=== PATIENT | male | born 1955 | race Caucasian/White ===

== ENCOUNTER 2016-10-05 11:08 | Inpatient (IN) ==
[2016-10-05 12:04] LABS: EOS% 5.9 % (0.0-10.0); HEMATOCRIT 21.8 % (42.0-52.0); HEMOGLOBIN 5.6 g/dL (14.0-18.0); LYMPH# 0.98 X1000 (1.2-3.4); LYMPH% 14.4 % (20.5-51.1); MANUAL DIFF NEEDED? NO; MCH 17.1 PG (27-31); MCHC 25.7 g/dL (33-37); MCV 66.5 FL (81-99); MONO# 0.74 X1000 (0.11-0.59); MONO% 10.9 % (1.7-9.3); MPV 9.1 FL (7.4-10.4); NEUT% 67.8 % (42.2-75.2); PLT 409 X1000 (130-400); RBC 3.28 XMIL (4.7-6.1)
[2016-10-05 12:08] LABS: URINE CULTURE NEEDED? NO; URINE MICRO REVIEW NEEDED? NO; URINE SOURCE CLEAN CATCH
[2016-10-05 12:14] LABS: BILIRUBIN URINE NEGATIVE (NEGATIVE); BLOOD URINE NEGATIVE (NEGATIVE); COLOR YELLOW; GLUCOSE URINE NEGATIVE (NEGATIVE); LEUKOCYTES URINE NEGATIVE (NEGATIVE); NITRITE URINE NEGATIVE (NEGATIVE); PH URINE 5.5; PROTEIN URINE TRACE mg/dL (NEGATIVE); SP GRAVITY URINE 1.021; TURBIDITY URINE CLEAR (CLEAR); UR EPITHELIAL CELLS <10 /HPF (<10); URINE BACTERIA NEGATIVE /HPF; URINE RBC <10 /HPF (<10); URINE WBC <10 /HPF (<10); UROBILINOGEN URINE 2 mg/dL (NORMAL)
[2016-10-05 12:19] LABS: AGAP 13; ALBUMIN 4.2 g/dL (3.5-5.0); ALKALINE PHOSPHATASE 60 U/L (32-122); BUN 16 mg/dL (8-22); CALCIUM 9.1 mg/dL (8.8-10.2); CHLORIDE 101 mmol/L (98-107); COSMO 276; GOT 16 U/L (10-34); GPT 8 U/L (10-44); POTASSIUM 4.1 mmol/L (3.5-5.1); SODIUM 138 mmol/L (136-145); TCO2 24 mmol/L (25-35); TOTAL BILIRUBIN 0.32 mg/dL (0.20-1.00); TOTAL PROTEIN 7.1 g/dL (6.3-8.3)
--- NOTE | 2016-10-05 12:22 | Diag Imaging Result Doc PS360 ---
EXAM: CHEST-2 VIEWS HISTORY: weakness TECHNIQUE: Two views of the chest COMMENT: There is an apparent hiatal hernia. The inspiration is suboptimal. There is no evidence of acute pulmonary disease. IMPRESSION: Hiatal hernia. Electronically signed by Alen Cobian 10/05/2016 12:19 PM
--- NOTE | 2016-10-05 12:23 | PROVIDER DOCUMENTATION ---
This chart was entered by Kenan Mora Scribe, acting as scribe for Alonzo Estrada Jr, MD. HPI-General Adult - General Chief Complaint: Weakness Stated Complaint: POSS LOW BLOOD Time Seen by Provider: 10/05/16 11:24 Source: patient Allergies/Adverse Reactions: Patient Allergies Allergy/AdvReac Type Severity Reaction Status Date / Time No Known Allergies Allergy Verified 10/05/16 11:33 Home Medications: Home Medication List Medication Instructions Recorded Confirmed Last Taken Type NK [No Home Medications] 10/05/16 10/05/16 Unknown History - History of Present Illness -Gen Adult Nature of Presenting Problems: Patient is a 61 yo M that presents to the ER with weakness( generalized) x 3 days. Possible low blood counts with history of same in past in which he had to get blood transfusions. Patient denies shortness of breath, dizziness, or rectal /oral bleeding. Location of Pain/Injury: reports: generalized Pain Radiation: reports: no radiation Quality of Pain: reports: other (weakness) Severity: reports: moderate Onset/Duration: reports: gradual, 3 days ago Timing: reports: still present, getting worse Context/Activities at Onset: reports: none Modifying Factors: improves with: nothing Associated Symptoms: reports: weakness. denies: chest pain, constipation, diarrhea, dizziness, EENT symptoms, genitourinary problems, nausea, shortness of breath, vomiting Similar Symptoms Previously?: No Recently seen or treated by another doctor?: No Review of Systems - Adult - REVIEW OF SYSTEMS - ADULT Constitutional: reports: fatique. denies: chills, fever Eyes: reports: no symptoms reported Ears, Nose, Mouth & Throat: reports: no symptoms reported Cardiovascular: denies: chest pain, orthopnea, palpitations, syncope Respiratory: denies: dyspnea on exertion, shortness of breath, wheezing Gastrointestinal: denies: abdominal pain, hematemesis, diarrhea, nausea, rectal bleeding, vomiting Genitourinary: reports: no symptoms reported Musculoskeletal: reports: muscle weakness. denies: muscle aches Integumentary: reports: no symptoms reported Neurological: denies: dizziness/vertigo, syncope Psychiatric: reports: no symptoms reported Endocrine: reports: no symptoms reported Hematologic/Lymphatic: reports: no symptoms reported Allergic/Immunologic: reports: no symptoms reported All Other Systems: Reviewed and Negative Past History - Adult - PAST MEDICAL HISTORY-ADULT Review of Records: reports: Old Records Reviewed, Nursing Assessment Review, Medications Reviewed Neurological: reports: other (CP) - PRIOR SURGERIES/PROCEDURES Surgical/Procedure History: reports: orthopedic (extremity) - IMMUNIZATION STATUS Childhood Immunizations: See Nurse Assessment Flu Vaccine: See Nurse Assessment - FAMILY HISTORY Family History: reviewed, not pertinent - SOCIAL HISTORY Smoking: cigarettes, less than 1 pack/day Alcohol Use Frequency: occasionally Living Situation: family Physical Exam-General - PHYSICAL EXAM-ADULT Initial Vital Signs Reviewed: Yes - CONSTITUTIONAL General Appearance: alert, no apparent distress - EYES Eyes: PERRL/EOMI, pale conjunctivae - HEAD, EARS, NOSE, MOUTH & THROAT HENMT: normocephalic/atraumatic, moist mucous membranes, normal ENT inspection - NECK Neck: full range of motion, normal inspection - RESPIRATORY Respiratory: lungs clear, normal breath sounds, no respiratory distress, no accessory muscle use - CARDIOVASCULAR Cardiovascular: regular rate, rhythm, no edema, no murmur - GASTROINTESTINAL (ABDOMEN) Abdominal Exam: normal bowel sounds, non tender, soft, no organomegaly, no pulsatile mass - MUSCULOSKELETAL Extremity: normal range of motion, pelvis stable, pedal edema (1 plus pitting) - SKIN Integumentary: pallor. negative: cyanosis - NEUROLOGIC Neurologic: media reporter II-XII nml as tested, no motor/sensory deficits - PSYCHIATRIC Psych/Mental Status: normal mood/affect, normal thought content, normal thought process, oriented x 3 Progress - PLAN OF CARE/RESULTS Progress/Plan/Lab Results: Vital Signs - 8 hr 10/05/16 11:18 Temperature 98.7 F Pulse Rate 90 Respiratory Rate 16 Blood Pressure 149/85 O2 Sat by Pulse Oximetry 100 Orders Category Date Time Status CHEST-2 VIEWS [RAD] Stat Exams 10/05/16 11:27 Ordered CBC WITH ELECTRONIC DIFF [HEME] Stat Lab 10/05/16 11:42 Received COMPREHENSIVE METABOLIC PANEL [CHEM] Stat Lab 10/05/16 11:42 Received URINALYSIS W/POSS RFLX CULT-1 [URINALYSIS] Stat Lab 10/05/16 11:26 Uncollected EKG [EKG] Stat Ther 10/05/16 11:28 Ordered Result Diagrams: 10/05/16 11:42 10/05/16 11:42 - XRAY 1 XRAY Study: Chest Impression: Abnormal XRAY Interpretation: hiatal hernia - CONSULTS/PCP/HOSPITALIST Notification #1 *Consult/PCP/Hospitalist*: Mr. Taylor Time Discussed: 12:20 (Dr. Brody is admitting MD) Consult Disposition: Admit Departure - Departure Date of Disposition Decision: 10/05/16 Time of Disposition Decision: 12:21 DIAGNOSIS: Microcytic anemia Disposition: ADMITTED INPATIENT 09 Certified Medical Emergency: Emergent Condition: Good - Critical Care Note This patient required my direct & personal management of CC.: No This chart was documented by the indicated scribe, (Kenan Mora, Scribe) and accurately reflects the services I performed and decisions made by me, Alonzo Estrada Jr, MD, as attested by the provider's signature.
[2016-10-05 13:34] LABS: IRON SATURATION 3 %; TIBC 490 ug/dL; TOTAL IRON 14 ug/dL (53-167); UNBOUND IRON 476 ug/dL (112-346)
[2016-10-05 13:39] LABS: FREE T4 1.14 ng/dL (0.93-1.70)
--- NOTE | 2016-10-05 13:58 | HISTORY AND PHYSICAL ---
PRIMARY CARE PHYSICIAN: None. CHIEF COMPLAINT: Weakness. HISTORY OF PRESENT ILLNESS: Mr. Santos is a 61-year-old male with a history of cerebral palsy and chronic anemia who presents with worsening weakness over the past 2-3 days. He reports his symptoms are similar to feeling sick with the flu, he has had an overall general malaise and difficulty finding energy to do day-to-day activities. He denies any fever, chills, or muscle aches. No nausea, vomiting or diarrhea. Denies any hematochezia, melena or hematemesis. Mr. Santos reports about a 3 year history of fairly severe and chronic anemia. He has had multiple workups including, apparently, upper and lower endoscopies along with capsule endoscopy without any significant source of bleeding. He was apparently on iron and he reports he was told that he did not need to take it any more at some point in the recent past. He came to the ER today, his hemoglobin and hematocrit was noted to be 5.6 and 21.8 respectively. He does have an MCV of 66.5, the rest of his laboratory data is largely unremarkable. Chest x-ray does not show anything acute. He is currently receiving 2 units of PRBC transfusion and will be admitted for further treatment and evaluation. PAST MEDICAL HISTORY: 1. Cerebral palsy with chronic lower extremity weakness. 2. Chronic anemia. 3. GERD. PAST SURGICAL HISTORY: He has had bilateral lower extremity surgery secondary to his CP and shoulder surgery. SOCIAL HISTORY: Patient smokes a half a pack a day. He drinks occasionally. Denies any drug use. He is and lives with his daughter and son-in-law. FAMILY HISTORY: Noncontributory. REVIEW OF SYSTEMS: Fourteen-point review of systems obtained and found to be negative with the exception of the HPI. ALLERGIES: No known drug allergies. HOME MEDICATIONS: None. PHYSICAL EXAMINATION: VITAL SIGNS: Blood pressure is 149/85, heart rate 90, respiratory rate 16, O2 saturation 100% on room air. Temperature is 98.7 degrees. GENERAL: This is a disheveled-appearing 61-year-old male, lying in hospital bed in no acute distress. NEUROLOGIC: The patient is awake, alert. He follows commands without significant focal deficits. HEENT: Head is atraumatic and normocephalic. His pupils are equal, round, and reactive to light. His oral mucosa is dry and pale. Conjunctiva is pale. NECK: Supple. Trachea is midline. No JVD. CHEST: Clear to auscultation bilaterally. Diminished at the bases. CV: Regular rate and rhythm. S1-S2 is noted. No murmurs, gallops, clicks, or rubs. GI: Soft, nondistended, nontender. Bowel sounds are positive. EXTREMITIES: Trace edema. Diminished pulses are 1+ bilaterally without edema or cyanosis. DIAGNOSTIC DATA: Chest x-ray negative for acute process. WBC 6.81, hemoglobin 5.6, hematocrit 21.8. MCV 66.5, platelet count 409,000, sodium 138, potassium 4.1, chloride 101, CO2 24, anion gap 13, BUN 16, creatinine 0.9, glucose is 86, calcium 9.1. LFTs within normal limits. Albumin 4.2. UA is negative. ASSESSMENT AND PLAN: 1. Profound microcytic anemia, symptomatic: Patient is currently receiving 2 units of PRBCs. We will order complete iron studies and consult GI for possible endoscopy, although the patient denies any melena, hematochezia or hematemesis. If his workup is negative he may need to see hematology although I do suspect the patient has chronic iron deficiency given his history. 2. Cerebral palsy. Chronic and stable. Will monitor. 3. Nicotine dependence: Patient has been advised to quit smoking. We will write a nicotine patch and continue daily cessation education. 4. Deep venous thrombosis prophylaxis with sequential compression devices and thromboembolic devices given his anemia. Further recommendations to follow. Dictated by MERARY García for Rosendo Fallon MD cc: MERARY García MD
[2016-10-05] MEDS ORDERED: NS 500 ML ONE (15:39)
[2016-10-05] MEDS: NICODERM PATCH TD SCH (18:32)
[2016-10-05] MEDS: ZOFRAN IV PRN (18:42)
[2016-10-06 07:21] LABS: HEMATOCRIT 26.7 % (42.0-52.0); HEMOGLOBIN 7.7 g/dL (14.0-18.0); MCHC 28.8 g/dL (33-37); MPV 9.3 FL (7.4-10.4); RBC 3.66 XMIL (4.7-6.1)
[2016-10-06 07:43] LABS: AGAP 9; BUN 13 mg/dL (8-22); CALCIUM 8.8 mg/dL (8.8-10.2); CHLORIDE 102 mmol/L (98-107); COSMO 275; POTASSIUM 4.5 mmol/L (3.5-5.1); SODIUM 138 mmol/L (136-145); TCO2 27 mmol/L (25-35)
[2016-10-06] MEDS: NICODERM PATCH TD SCH (09:55)
[2016-10-06] MEDS ORDERED: GOLYTELY PO ONE (14:00)
[2016-10-06 14:02] LABS: INR 1.03; PROTIME 10.8 Seconds (9.2-11.7)
--- NOTE | 2016-10-06 15:20 | PROGRESS NOTE ---
DATE: 10/06/2016 SUBJECTIVE: This patient states that he is feeling better. No acute events overnight. He is status post one PRBC. OBJECTIVE: Vital Signs: Temperature 97.8 degrees, pulse 65, respiratory rate 18, blood pressure 142/81, oxygen saturation 100% on room air. HEENT: Head normocephalic. No trauma. PERRLA. Neck: Supple. No JVD. No masses. Central trachea. Skin: Pale. Chest: Clear to auscultation. No wheezing. No rales. Abdomen: Soft, nontender, nondistended. No hepatosplenomegaly. Extremities: No edema. No clubbing. No cyanosis. Neurological: The patient is alert and oriented x3. No focal deficits. LABORATORY: WBC 6.3, hemoglobin 7.7, hematocrit 26.7, platelets 363,000. Sodium 138, potassium 4.5, chloride 102, bicarbonate 27. BUN 13, creatinine 0.8, glucose 88, calcium 8.8. ASSESSMENT AND PLAN: 1. Microcytic anemia, symptomatic, status post 1 packed red blood cell. Gastroenterology Department will scope this patient tomorrow. He will be NPO after midnight with bowel prep. 2. Cerebral palsy, chronic and stable. Will monitor. 3. Nicotine dependence. This patient has been highly advised to quit smoking. We will continue with daily cessation education. Continue with nicotine patch. 4. Deep vein thrombosis prophylaxis with SCDs. cc: Rosendo Fallon MD
--- NOTE | 2016-10-06 16:10 | CONSULTATION ---
DATE OF CONSULTATION: 10/06/2016 REASON FOR REFERRAL: Anemia. HISTORY OF PRESENT ILLNESS: This is a 61-year-old, white male with a history of cerebral palsy and chronic anemia. He states he has been treated and followed for anemia for the last 3 years. He was living in [place] when he had other workup done including an EGD, colonoscopy and capsule endoscopy. The patient reports over the last several days, he has had increased weakness and fatigue. He had denied dizziness or syncope. He just felt tired and was unable to perform his day-to-day activities. No reported nausea or vomiting. No reported constipation or diarrhea. No reported abdominal pain. No reported bright red blood in the stool. He did report some darker stools than normal, but states they were not black or tarry. On admission he was found to be severely anemic. His hemoglobin was 5.6, hematocrit 21.8. He has received 2 units of packed red blood cells. PAST MEDICAL HISTORY: For cerebral palsy and chronic anemia. GERD. PAST SURGICAL HISTORY: Lower extremity surgery secondary to cerebral palsy and shoulder surgery. ALLERGIES: No known drug allergies. HOME MEDICATIONS: He takes a Prilosec over the counter as needed. No other reported medications. He denies taking anti-inflammatory medications like ibuprofen, Motrin or Goody powders. SOCIAL HISTORY: Positive for tobacco use 1/2 pack of cigarettes daily. Reports occasional alcohol use. He is a . He lives with his daughter. REVIEW OF SYSTEMS: Per HPI. PHYSICAL EXAMINATION: Vital Signs: Temperature 97.8, pulse 65, respirations 18, blood pressure 142/81. Generally: Patient is awake, alert, no acute distress. HEENT: Normocephalic, atraumatic. Pupils equal, round, reactive to light. Sclerae are nonicteric. Respiratory: Lung sounds essentially clear. Abdomen: Soft, nontender. Positive bowel sounds. Extremities: Mild edema noted. Otherwise pulses present bilaterally. DIAGNOSTIC RESULTS: Laboratory: Hematology: White count 6.53, hemoglobin 7.7, hematocrit 26.7, MCV 73.0. This is after 2 units of packed red blood cells. Coagulation: ProTime 10.8, INR 1.03. Chemistry: Sodium 138, potassium 4.5, chloride 102, CO2 of 27, BUN 13, creatinine is 0.8, glucose 88. Iron 14, TIBC 490. Percent saturation 3 ferritin 3. ASSESSMENT: 1. Anemia. 2. History of chronic anemia with other workup including upper and lower endoscopies and capsule endoscopy when he lived in [place]. 3. Cerebral palsy. PLAN: Continue supportive care. Monitor hemoglobin, hematocrit. Monitor for active bleeding. Will proceed with an EGD and colonoscopy when possible. Further plans to be made according to findings. I have discussed the risks and benefits of the procedure with the patient. He voices understanding. Thank you for this consultation. I have discussed this case with Dr. Pat. Dictated by MERARY Blanco for Alejandro Pat MD cc: MERARY Gibbs MD
[2016-10-06] MEDS ORDERED: NS 500 ML ONE (16:27)
[2016-10-07 07:17] LABS: BASO% 0.8 % (0.0-0.8); EOS# 0.62 X1000 (0.0-0.7); EOS% 8.7 % (0.0-10.0); HEMATOCRIT 33.3 % (42.0-52.0); HEMOGLOBIN 10.1 g/dL (14.0-18.0); LYMPH# 1.18 X1000 (1.2-3.4); LYMPH% 16.6 % (20.5-51.1); MANUAL DIFF NEEDED? YES; MCH 22.5 PG (27-31); MCHC 30.3 g/dL (33-37); MCV 74.2 FL (81-99); MONO# 0.89 X1000 (0.11-0.59); MONO% 12.6 % (1.7-9.3); MPV 9.2 FL (7.4-10.4); NEUT% 61.3 % (42.2-75.2); PLT 360 X1000 (130-400); RBC 4.49 XMIL (4.7-6.1)
[2016-10-07 07:25] LABS: AGAP 10; BUN 10 mg/dL (8-22); CALCIUM 8.7 mg/dL (8.8-10.2); CHLORIDE 103 mmol/L (98-107); COSMO 276; POTASSIUM 4.2 mmol/L (3.5-5.1); SODIUM 139 mmol/L (136-145); TCO2 26 mmol/L (25-35)
[2016-10-07 08:07] LABS: EOS 4 % (1-10); LYMPHS 22 % (21-51); MONO 4 % (1-9)
[2016-10-07] MEDS ORDERED: DIPRIVAN 1% ONE ×2 (08:17→08:34)
[2016-10-07] MEDS ORDERED: XYLOCAINE-MPF 2% ONE (08:17)
--- NOTE | 2016-10-07 13:08 | Diag Imaging Result Doc PS360 ---
EXAM: GI SERIES PARTIAL INDICATION: Giant Hiatal Hernia TECHNIQUE: Oral barium contrast was administered. Limited fluoroscopic images of the distal esophagus and stomach were obtained in the usual fashion. COMPARISON: None. FINDINGS: A majority of the stomach is herniated above the diaphragm to the left of the esophagus. The gastroesophageal junction is at or near the diaphragmatic hiatus. This suggests a possible paraesophageal hernia rather than a typical hiatal hernia. No discrete filling defects are identified on these limited images. IMPRESSION: Majority of the stomach herniated above the diaphragm in a configuration suggesting a possible paraesophageal hernia as described. Electronically signed by Sherwin Sheppard 10/07/2016 1:05 PM
--- NOTE | 2016-10-07 15:52 | PROGRESS NOTE ---
DATE: 10/07/2016 SUBJECTIVE: This patient states that he is feeling better. He had an upper endoscopy and colonoscopy today, he is not complaining of any specific pain at this moment. Hemoglobin and hematocrit are stable. I will start this patient on a diet. OBJECTIVE: Vital Signs: Temperature 97.7 degrees, pulse 60, respiratory rate 20, blood pressure 136/77, oxygen saturation 96% on room air. HEENT: Head normocephalic. No trauma. PERRLA. Neck: Supple. No JVD. No masses. Central trachea. Skin: Pale. Chest: Clear to auscultation. No wheezing. No rales. Abdomen: Soft, nontender, nondistended. No hepatosplenomegaly. Extremities: No edema. No clubbing. No cyanosis. Neurological: The patient is alert and oriented x3. No focal deficits. LABORATORY: WBC 7, hemoglobin 10.1, hematocrit 33.3, platelets 360,000. Sodium 139, potassium 4.2, chloride 103, bicarbonate 26, BUN 18, creatinine 0.8, glucose 83, calcium 8.7, magnesium 2.1. ASSESSMENT AND PLAN: 1. Microcytic anemia, symptomatic, status post packed red blood cells. Gastroenterology Department for scoped this patient today. Pending reports and recommendation. 2. Cerebral palsy, chronic and stable. Will monitor. 3. Nicotine dependence. This patient has been highly advised to quit smoking. We will continue with daily cessation education, continue with nicotine patch. 4. Deep vein thrombosis prophylaxis with sequential compression devices. cc: Rosendo Fallon MD
[2016-10-07] MEDS: NICODERM PATCH TD SCH (17:01)
--- NOTE | 2016-10-07 18:01 | OPERATIVE NOTE ---
PROCEDURE DATE: 10/07/2016 PROCEDURE: Esophagogastroduodenoscopy and flexible sigmoidoscopy. PREOPERATIVE DIAGNOSIS: Profound anemia. POSTOPERATIVE DIAGNOSES: 1. Large hiatal hernia with Randy's lesions. 2. Poor prep. 3. Otherwise normal flexible sigmoidoscopy. HISTORY: This is a 61-year-old gentleman admitted to the hospital with profound weakness and was found to have a severe anemia. EGD and colonoscopy was scheduled today to identify the etiology and rule out GI pathology resulting in his anemia requiring transfusion. DESCRIPTION OF PROCEDURE: Informed consent was obtained from the patient. Procedure, risks, benefits, alternatives were explained in layman's terms. He understood. All the pertinent questions were answered. Patient was brought to the endoscopy unit and was premedicated as per Anesthesia. After adequate sedation, while he was lying in left lateral position, the gastroscope was introduced into the posterior pharynx and advanced under direct vision into the esophagus. Esophagus showed evidence of a large hiatal hernia. It was a mixed hiatal hernia and rather large. GE junction was noted at about 30 cm from the incisor, and almost like 10 cm long hiatal hernia was noted. The stomach was almost J-shaped, it was very difficult to advance the scope through the hernial sac into the distal stomach, but with some maneuvering I was able to advance it to the antrum area and then through the normal pylorus into the duodenal bulb and the 2nd part of duodenum. Both duodenal bulb and 2nd portion of duodenum appeared to be normal. The distal stomach appeared to be normal. No erosion, ulceration or mass was seen. However proximal stomach, most of the proximal stomach that is almost two-thirds of the stomach was in the hernial sac and there appeared to be an axial rotation of the stomach as well. 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 I did not see any distinct ulcer, but there were some linear erosions seen at the diaphragmatic hiatus suggestive of Randy's lesions. The scope was withdrawn. Patient was then repositioned for colonoscopy. Digital rectal exam was performed, which revealed some brown stool in the rectum. I introduced the scope and I was able to go up to only 25-30 cm from the anal verge. Further advance was not possible because of poor prep. I tried to was employ vigorous irrigation suctioning for better visualization but I was unable to because of again poor prep. The scope was withdrawn. Patient tolerated the procedure. No complications noted. Patient was then transferred to the recovery area in a stable condition. IMPRESSION: Profound anemia most likely from bleeding from the Randy's lesions in his stomach from the hiatal hernia. I did not see any peptic ulcer disease or pathology in the sigmoid colon that would explain his anemia. I recommend to do an upper GI to identify the size and the anatomy of the hiatal hernia and that can be corrected surgically to help him avoid these episodes of anemia requiring transfusions. He may need a full colonoscopy later down the road. I have explained the findings and plan with the patient. He understands. All the pertinent questions answered. cc: Alejandro Pat MD
[2016-10-08 07:35] LABS: HEMOGLOBIN 10.5 g/dL (14.0-18.0); MCH 22.6 PG (27-31); MCV 75.3 FL (81-99); MPV 9.5 FL (7.4-10.4); RBC 4.65 XMIL (4.7-6.1)
[2016-10-08 07:46] LABS: AGAP 10; BUN 8 mg/dL (8-22); CALCIUM 9.1 mg/dL (8.8-10.2); CHLORIDE 102 mmol/L (98-107); COSMO 275; POTASSIUM 4.2 mmol/L (3.5-5.1); SODIUM 139 mmol/L (136-145); TCO2 27 mmol/L (25-35)
--- NOTE | 2016-10-08 12:29 | PROGRESS NOTE ---
DATE: 10/08/2016 SUBJECTIVE: The patient states he is feeling a little better. EGD and flexible sigmoidoscopy were done yesterday on 10/07/2016. Findings showed a large hiatal hernia with Randy's lesions. Poor prep for colonoscopy but, otherwise, normal flexible sigmoidoscopy. He had an upper GI series that showed a giant hiatal hernia. The majority of the stomach is herniated above the diaphragm to the left of the esophagus. The gastroesophageal junction is at or near the diaphragmatic hiatus suggesting possible paraesophageal hernia rather than a typical hiatal hernia. No discrete filling defects are identified. VITAL SIGNS: Temperature 98.3 degrees, pulse 62, respirations 16, blood pressure 143/73. LABORATORY: Hematology: White count 6.27, hemoglobin 10.5, hematocrit 35.0. MCV 75.3, platelet 378,000. Chemistry: Sodium 139, potassium 4.2, chloride 102, CO2 of 27, BUN 8 , creatinine 0.8, glucose 83. ASSESSMENT AND PLAN: 1. Anemia. 2. Large hiatal hernia versus paraesophageal hernia. 3. Normal flexible sigmoidoscopy but poor prep. GI series showed a giant hiatal hernia suggesting possible paraesophageal hernia. Bleeding most likely from Randy's lesion secondary to hernia. Consultation has been requested for Dr. Esquivel for evaluation. We will continue to follow. Monitor H/H and monitor for active bleeding. Further plans will be made as needed. Dictated by MERARY Blanco for Alejandro Pat MD cc: MERARY Gibbs MD [facility]
--- NOTE | 2016-10-08 14:47 | PROGRESS NOTE ---
DATE: 10/08/2016 SUBJECTIVE: This patient states that he is feeling better. He is tolerating p.o. Family members are at the bedside. He had an endoscopy yesterday that showed a Randy lesion secondary to gastric herniation. Gastroenterology department suggested to consult surgery for evaluation. OBJECTIVE: Vital Signs: Temperature 98.6 degrees, pulse 78, respiratory rate 21, blood pressure 140/85, oxygen saturation 97% on room air. HEENT: Head normocephalic. No trauma. PERRLA. Neck: Supple. No JVD. No masses. Central trachea. Chest: Clear to auscultation. No wheezing. No rales. Abdomen: Soft, nontender, nondistended. No hepatosplenomegaly. Extremities: No clubbing. No clubbing. No cyanosis. Neurological: The patient is alert and oriented x3. No focal deficits. LABORATORY: WBC 6.2, hemoglobin 10.5, hematocrit 35, platelets 378,000. Sodium 139, potassium 4.2, chloride 102, bicarbonate 27, BUN 8, creatinine 0.8, glucose 83, calcium 9.1, magnesium 2. ASSESSMENT AND PLAN: 1. Randy lesion. This patient was admitted secondary to microcytic anemia. He received PRBCs. Gastroenterology department did scope this patient and they found a gastric herniation and Randy lesion. Likely the bleeding is coming from this part of the stomach. Surgery department has been consulted for evaluation. 2. Microcytic anemia. As above. 3. Cerebral palsy. This is chronic and stable. Will monitor. 4. Nicotine dependence. This patient has been highly advised to quit smoking. We will continue with daily cessation education. Continue with nicotine patch. 5. Deep vein thrombosis prophylaxis with SCDs. cc: Rosendo Fallon MD
[2016-10-08] MEDS: NICODERM PATCH TD SCH (16:00)
--- NOTE | 2016-10-08 19:08 | CONSULTATION ---
DATE OF CONSULTATION: 10/08/2016 CHIEF COMPLAINT: Blood-loss anemia, large hiatal hernia and Randy lesions. HISTORY: This is a 61-year-old gentleman with cerebral palsy who has required multiple transfusions in the past due to bleeding of unknown etiology. He was admitted recently again with anemia and underwent endoscopy by Dr. Pat who found a very large hiatal hernia and Randy lesions which could account for his chronic blood loss. He does have gastroesophageal reflux disease. He does take over-the- counter PPIs. He does have significant symptoms without PPIs. PAST SURGICAL HISTORY: Shoulder surgery and some lower extremity surgery for his cerebral palsy. SOCIAL HISTORY: He is and moves from family member to family member for care. He does smoke cigarettes daily. He does drink occasionally. FAMILY HISTORY: Not known. REVIEW OF SYSTEMS: As noted above. HOME MEDICATIONS: [id number] Prilosec. ALLERGIES: He has no known drug allergies. PHYSICAL EXAM: Vital Signs: Afebrile. Heart rate 78, respiratory rate 20, blood pressure 140/85. General: He is awake, alert and communicates appropriately. HEENT: No cervical adenopathy. Lungs: Bilateral breath sounds. He does have rhonchi bilaterally. Heart: Regular rate and rhythm. Abdomen: Soft and nontender. No scars are noted. Extremities: Femoral pulses are present. Pedal pulses are present. LABORATORY DATA: Reveals hemoglobin up to 10.5, hematocrit 35, white count 6700. BUN 8, creatinine 0.8. ASSESSMENT: Large hiatal hernia with Randy lesions. PLAN: Get a CAT scan to further evaluate the anatomy. Thank you for the opportunity to see him. cc: Olivier Esquivel MD
[2016-10-09] MEDS: PRILOSEC PO SCH (06:46)
[2016-10-09 06:48] LABS: BASO% 1.1 % (0.0-0.8); EOS% 10.8 % (0.0-10.0); HEMATOCRIT 36.5 % (42.0-52.0); IMM GRAN# 0.03 X1000 (0.0-0.04); IMM GRAN% 0.4 % (0.0-0.5); LYMPH# 1.37 X1000 (1.2-3.4); LYMPH% 18.4 % (20.5-51.1); MANUAL DIFF NEEDED? NO; MCH 22.6 PG (27-31); MCHC 30.1 g/dL (33-37); MCV 75.1 FL (81-99); MONO# 1.03 X1000 (0.11-0.59); MONO% 13.9 % (1.7-9.3); MPV 9.1 FL (7.4-10.4); NEUT% 55.4 % (42.2-75.2); PLT 405 X1000 (130-400); RBC 4.86 XMIL (4.7-6.1)
[2016-10-09 07:14] LABS: AGAP 9; BUN 15 mg/dL (8-22); CALCIUM 9.2 mg/dL (8.8-10.2); CHLORIDE 100 mmol/L (98-107); COSMO 276; MAGNESIUM 2.1 mg/dL (1.5-2.7); POTASSIUM 4.3 mmol/L (3.5-5.1); SODIUM 138 mmol/L (136-145); TCO2 29 mmol/L (25-35)
--- NOTE | 2016-10-09 08:30 | Diag Imaging Result Doc PS360 ---
EXAM: ABDOMEN W/O CONTRAST HISTORY: Large hiatal hernia TECHNIQUE: CT of the abdomen with oral but no intravenous contrast COMMENT: There are no previous studies. There is a very large hiatal hernia which has been described on fluoroscopy previously. There is minimal atelectasis or fibrosis in the right costophrenic sulcus posteriorly. The gastroesophageal junction appears to be below the diaphragm. The pylorus is in the normal location. There are no gallstones. There are stones in both kidneys most notably on the right side inferiorly where there are several stones exceeding 8 mm in size. There is no evidence of hydronephrosis. The spleen and adrenal glands are not enlarged. There are no gross pancreatic abnormalities. The liver is grossly normal in appearance. There is no evidence of small bowel dilatation. IMPRESSION: 1. Paraesophageal hiatal hernia. 2. Bilateral nephrolithiasis without evidence of hydronephrosis. Electronically signed by Alen Cobian 10/09/2016 8:27 AM
[2016-10-09] MEDS: NICODERM PATCH TD SCH (10:19)
--- NOTE | 2016-10-09 13:01 | PROGRESS NOTE ---
DATE: 10/09/2016 SUBJECTIVE: This patient states that he is feeling better. He does not have any specific complaints today. No acute events overnight. OBJECTIVE: Vital Signs: Temperature 98 degrees, pulse 63, respiratory rate 16, blood pressure 113/87, O2 saturation 97% on room air. HEENT: Head normocephalic. No trauma. PERRLA. Neck: Supple. No JVD. No masses. Central trachea. Chest: Clear to auscultation. No wheezing. No rales. Abdomen: Soft, nontender, nondistended. No hepatosplenomegaly. Extremities: No edema. No clubbing. No cyanosis. Neurological: The patient is alert and oriented x3. No focal deficits. LABORATORY: WBC 7.4, hemoglobin 11, hematocrit 36.5, platelets 405,000. Sodium 138, potassium 4.3, chloride 100, bicarbonate 29, BUN 15, creatinine 0.9, glucose 96, calcium 9.2, magnesium 2.1. ASSESSMENT AND PLAN: 1. Randy lesion. This patient was admitted secondary to microcytic anemia. He received packed red blood cells. The Gastroenterology Department did scope this patient and they found a gastric herniation and Randy lesion. Likely, the bleeding is coming from this part of the stomach. The Surgery Department has been consulted to see if they can repair the paraesophageal herniation. 2. Microcytic anemia, as above. 3. Cerebral palsy. It looks like he has very mild dysfunction. This patient is completely alert and oriented x3, and he follows commands. 4. Nicotine dependence. This patient has been highly advised to quit smoking. We will continue with daily cessation education. Continue with nicotine patch. 5. Deep vein thrombosis prophylaxis with SCDs. cc: Rosendo Fallon MD
--- NOTE | 2016-10-09 13:11 | PROGRESS NOTE ---
DATE: 10/09/2016 SUBJECTIVE: Patient denies any significant complaints this morning. He has been seen by Dr. Esquivel. Dr. Esquivel has ordered a CT scan and will decide about further plans regarding possible surgery for his hernia. OBJECTIVE: Vital Signs: Temperature 98.0 degrees, pulse 63, respirations 16, blood pressure 113/87. LABORATORY: Hematology: White count 7.43, hemoglobin 11.0, hematocrit 36.5, MCV 75.1, platelets 405,000. Chemistry: Sodium 138, potassium 4.3, chloride 100, CO2 of 29. BUN 15, creatinine 0.9, glucose 96. ASSESSMENT AND PLAN: 1. Anemia. 2. Esophagogastroduodenoscopy findings showing large hiatal hernia and Randy's lesions. 3. Hiatal hernia versus paraesophageal hernia. 4. Cerebral palsy. PLAN: Continue supportive care. Dr. Esquivel has seen the patient and has ordered a CT scan. Further plans will be made by him regarding possibility of surgery for repair of hernia. We will continue to follow. Further plans will be made as needed. Dictated by MERARY Blanco for Alejandro Pat MD cc: MERARY Gibbs MD
[2016-10-10 06:34] LABS: BASO% 0.8 % (0.0-0.8); EOS# 0.97 X1000 (0.0-0.7); EOS% 12.6 % (0.0-10.0); HEMATOCRIT 37.6 % (42.0-52.0); HEMOGLOBIN 11.4 g/dL (14.0-18.0); IMM GRAN# 0.03 X1000 (0.0-0.04); IMM GRAN% 0.4 % (0.0-0.5); LYMPH# 1.37 X1000 (1.2-3.4); LYMPH% 17.9 % (20.5-51.1); MANUAL DIFF NEEDED? NO; MCH 22.9 PG (27-31); MCHC 30.3 g/dL (33-37); MCV 75.7 FL (81-99); MONO% 11.7 % (1.7-9.3); MPV 9.1 FL (7.4-10.4); NEUT% 56.6 % (42.2-75.2); PLT 408 X1000 (130-400); RBC 4.97 XMIL (4.7-6.1)
[2016-10-10 07:02] LABS: AGAP 5; BUN 16 mg/dL (8-22); CALCIUM 9.3 mg/dL (8.8-10.2); CHLORIDE 101 mmol/L (98-107); COSMO 273; POTASSIUM 4.4 mmol/L (3.5-5.1); SODIUM 136 mmol/L (136-145); TCO2 30 mmol/L (25-35)
[2016-10-10] MEDS: NICODERM PATCH TD SCH (10:41)
[2016-10-10] MEDS: PRILOSEC PO SCH (10:45)
--- NOTE | 2016-10-10 14:06 | PROGRESS NOTE ---
DATE: 10/10/2016 SUBJECTIVE: This patient states that he is feeling better. Surgery Department evaluated this patient and they will schedule this patient for a possible paraesophageal hernia repair. Will continue to monitor. OBJECTIVE: Vital Signs: Temperature 97.6 degrees, pulse 69, respiratory rate 19, blood pressure 114/80, O2 saturation 97% on room air. HEENT: Head normocephalic. No trauma. PERRLA. Neck: Supple. No JVD. No masses. Central trachea. Chest: Clear to auscultation. No wheezing. No rales. Abdomen: Soft, nontender, nondistended. No hepatosplenomegaly. Extremities: No edema. No clubbing. No cyanosis. Neurological: The patient is alert and oriented x3. No focal deficits. LABORATORY: WBC 7.6, hemoglobin 11.4, hematocrit 37.6, platelets 408,000. Sodium 136, potassium 4.4, chloride 101, bicarbonate 30, BUN 16, creatinine 0.9, glucose 94, calcium 9.3. ASSESSMENT AND PLAN: 1. Randy lesion. This patient was admitted secondary to microcytic anemia. He received packed red blood cells. Gastroenterology did scope this patient and they found a gastric herniation and Randy lesion, likely the bleeding was coming from this part of the stomach. Surgery department evaluated this patient and they will do a paraesophageal hernia repair. They will schedule this patient for surgery. 2. Paraesophageal hernia. As above. 3. Microcytic anemia. As above. 4. Cerebral palsy. He looks like he has very mild dysfunction. This patient is completely alert and oriented x3 and he follows commands. 5. Nicotine dependence. This patient has been highly advised to quit smoking. We will continue with daily cessation education and nicotine patch. 6. Deep vein thrombosis prophylaxis with SCDs. cc: Rosendo Fallon MD
--- NOTE | 2016-10-10 15:50 | PROGRESS NOTE ---
DATE: 10/10/2016 SUBJECTIVE: Patient is resting in his chair. Has just finished his lunch and tolerated his diet well. Denies any GI symptoms. OBJECTIVE: Vital Signs: Temperature 97.6 degrees, pulse 69 per minute, breathing at 19, blood pressure 114/80. Physical exam otherwise unchanged. LABORATORY: Hemoglobin today 11.4, hematocrit 37.6 with an MCV of 75.7. IMPRESSION AND PLAN: Microcytic anemia. Improved after transfusion. His hemoglobin on admission was 5.6 and now is stabilizes at 11.4. Most likely the cause for his anemia is Randy lesion from his rather large paraesophageal hiatal hernia. The patient is scheduled to have surgery for correction of his hernia and fundoplication. Nothing much to add but I would try to get his endoscopy as well as capsule endoscopy reports from [place], [place] where he had an extensive workup done earlier. I will be available if needed. cc: Alejandro Pat MD
[2016-10-10] MEDS: TYLENOL PO PRN (20:14)
[2016-10-11] MEDS: PRILOSEC PO SCH (06:04)
[2016-10-11 07:07] LABS: BASO% 1.1 % (0.0-0.8); EOS# 1.11 X1000 (0.0-0.7); EOS% 12.6 % (0.0-10.0); HEMATOCRIT 37.2 % (42.0-52.0); HEMOGLOBIN 11.2 g/dL (14.0-18.0); IMM GRAN# 0.02 X1000 (0.0-0.04); IMM GRAN% 0.2 % (0.0-0.5); LYMPH# 1.21 X1000 (1.2-3.4); LYMPH% 13.8 % (20.5-51.1); MANUAL DIFF NEEDED? YES; MCHC 30.1 g/dL (33-37); MCV 76.4 FL (81-99); MONO# 0.99 X1000 (0.11-0.59); MONO% 11.3 % (1.7-9.3); MPV 9.5 FL (7.4-10.4); PLT 403 X1000 (130-400); RBC 4.87 XMIL (4.7-6.1)
[2016-10-11 07:08] LABS: AGAP 8; BUN 18 mg/dL (8-22); CHLORIDE 100 mmol/L (98-107); COSMO 276; POTASSIUM 4.6 mmol/L (3.5-5.1); SODIUM 137 mmol/L (136-145); TCO2 29 mmol/L (25-35)
[2016-10-11 07:43] LABS: EOS 9 % (1-10); LYMPHS 17 % (21-51); MONO 7 % (1-9)
[2016-10-11] MEDS: NICODERM PATCH TD SCH (09:04)
--- NOTE | 2016-10-11 15:23 | PROGRESS NOTE ---
DATE: 10/11/2016 SUBJECTIVE: This patient states that he is feeling better. He is complaining of mild abdominal pain, surgery department evaluated this patient and they will schedule this patient for possible paraesophageal hernia repair. Will continue to monitor. OBJECTIVE: Vital Signs: Temperature 98 degrees, pulse 63, respiratory rate 16, blood pressure 129/78, O2 saturation 98 on room air. HEENT: Head normocephalic. No trauma. PERRLA. Neck: Supple. No JVD. No masses. Central trachea. Chest: Clear to auscultation. No wheezing. No rales. Abdomen: Soft, nontender, nondistended. No hepatosplenomegaly. Extremities: No edema. No clubbing. No cyanosis. Neurological: The patient is alert and oriented x3. No focal deficits. LABORATORY: WBC 8.7, hemoglobin 11.2, hematocrit 37.2, platelets 403,000. Sodium 137, potassium 4.6, chloride 100, bicarbonate 29, BUN 18, creatinine 1.0, glucose 101, calcium 9. ASSESSMENT AND PLAN: 1. Randy lesion. This patient was admitted secondary to microcytic anemia. He received packet of red blood cells. Gastroenterology scoped this patient and they found a gastric herniation and Randy lesion. Likely the bleeding was coming from this part of the stomach. Surgery department evaluated this patient and they will do a paraesophageal hernia repair. They will schedule this patient for surgery. 2. Paraesophageal hernia. As above. 3. Microcytic anemia. As above. 4. Cerebral palsy. He looks like he has very mild dysfunction. This patient is completely alert and oriented x3. He follows commands and he is able to make decisions. 5. Nicotine dependence. This patient has been highly advised to quit smoking. We will continue with daily cessation education and nicotine patch. 6. Deep vein thrombosis prophylaxis with SCDs. cc: Rosendo Fallon MD
[2016-10-12] MEDS: PRILOSEC PO SCH (06:46)
[2016-10-12 06:58] LABS: BASO% 0.9 % (0.0-0.8); EOS# 1.02 X1000 (0.0-0.7); EOS% 11.8 % (0.0-10.0); HEMATOCRIT 36.6 % (42.0-52.0); HEMOGLOBIN 10.9 g/dL (14.0-18.0); IMM GRAN# 0.02 X1000 (0.0-0.04); IMM GRAN% 0.2 % (0.0-0.5); LYMPH# 1.31 X1000 (1.2-3.4); LYMPH% 15.2 % (20.5-51.1); MCHC 29.8 g/dL (33-37); MCV 77.2 FL (81-99); MONO# 0.95 X1000 (0.11-0.59); MPV 9.6 FL (7.4-10.4); NEUT% 60.9 % (42.2-75.2); PLT 370 X1000 (130-400); RBC 4.74 XMIL (4.7-6.1)
[2016-10-12 07:10] LABS: MANUAL DIFF NEEDED? NO
[2016-10-12 07:15] LABS: AGAP 7; BUN 19 mg/dL (8-22); CALCIUM 9.1 mg/dL (8.8-10.2); CHLORIDE 102 mmol/L (98-107); COSMO 281; POTASSIUM 4.7 mmol/L (3.5-5.1); SODIUM 140 mmol/L (136-145); TCO2 31 mmol/L (25-35)
[2016-10-12] MEDS: NICODERM PATCH TD SCH (11:17)
--- NOTE | 2016-10-12 11:55 | PROGRESS NOTE ---
DATE: 10/12/2016 SUBJECTIVE: Mr. Santos is a 61-year-old who was admitted on 10/05/2016 with a history of cerebral palsy, history of chronic anemia, who presented with worsening weakness over the last 2 to 3 days. He reports his symptoms feel similar to sick and flu and overall general malaise and difficulty finding energy for daily activities. He has a 3-year history of fairly severe chronic anemia. He has had multiple workups, including apparently upper and lower endoscopies and capsule endoscopy, without any significant source of bleeding discovered. He was told that he did not need to take anymore tests at some point. He came to the emergency room and had a hemoglobin 5.6, hematocrit 21, MCV of 66. He received 2 units of packed red blood cells. He states he is feeling a lot better. He is complaining of restless legs syndrome and would like to try something at night. PHYSICAL EXAMINATION: Vital Signs: On exam today, afebrile, temperature 97.5 degrees, pulse 75, respirations 18, blood pressure 121/77. HEENT and Neck: The pupils are equal, round. CVP less than 6 cm. Lungs: Clear in all lung serra. Cardiovascular: Regular rhythm and rate without murmur or S3. Abdomen: Soft. Skin: Warm and dry. LABORATORY DATA: White count 8620, hematocrit is 36, platelet count 370,000, MCV is 77. Sodium 140, potassium 4.7, chloride 102, bicarbonate 31, BUN 19, creatinine 0.9, magnesium 2. ASSESSMENT AND PLAN: 1. Randy lesion. The patient was admitted secondary to microcytic anemia. He received packed red blood cells. Gastroenterology scoped the patient and found gastric herniation with Randy lesions, likely the bleeding coming from that part of the stomach. Surgery department evaluated. He is I think planned for a Patti fundoplication on Tuesday per Dr. Esquivel. 2. Paraesophageal hernia. As above. 3. Microcytic anemia. He has been transfused. Blood count is stable. 4. History of cerebral palsy. 5. Nicotine dependence. 6. Looking at his medications, we will see if he can try something for nighttime to help with his restless leg, and I may try some trazodone 50 mg every night at bedtime. cc: Kemar Shell MD
[2016-10-12] MEDS: DESYREL PO SCH (22:09)
[2016-10-12] MEDS: TYLENOL PO PRN (22:09)
[2016-10-12] MEDS: ZOFRAN IV PRN (22:09)
[2016-10-13] MEDS ORDERED: MIRALAX PO PRN (02:52)
[2016-10-13] MEDS: PRILOSEC PO SCH (06:45)
[2016-10-13] MEDS: NICODERM PATCH TD SCH (08:36)
--- NOTE | 2016-10-13 09:47 | PROGRESS NOTE ---
DATE: 10/13/2016 SUBJECTIVE: Mr. Santos has ate all his breakfast. He is feeling better. He stated the restless leg syndrome did not improve much. He still had trouble with it last night, still tasting some blood. No nausea, no abdominal pain at this point. OBJECTIVE: Vital signs: Temperature 97.6 degrees, pulse 63, respirations 20, blood pressure 137/72. HEENT: Pupils are equal and round. Lungs: Lungs are clear in all lung serra. Cardiovascular exam: Regular rhythm and rate without murmur or S3. Abdomen: Soft. Skin: Warm and dry. LABORATORY: Review of lab from the fourth: Hematocrit 36, hemoglobin 10. Electrolytes: Sodium 140, potassium 4.7, chloride 102, BUN 19, creatinine 0.9. ASSESSMENT AND PLAN: 1. Randy lesion. Patient admitted secondary to microcytic anemia. Received packed red blood cell transfusion. Found gastric herniation with Randy lesions, and I think the plan is to do a Patti fundoplication per Dr. Esquivel I think on Tuesday. 2. Paraesophageal hernia. 3. Microcytic blood loss anemia. 4. History of cerebral palsy. 5. He wants the nicotine patch off, so will remove that. Reviews orders he would like me to try something different for his restless leg syndrome, so we will try ropinirole to see if that will help. I did put him on trazodone 25 mg at bedtime. cc: Kemar Shell MD
--- NOTE | 2016-10-13 13:50 | PROGRESS NOTE ---
DATE: 10/13/2016 SUBJECTIVE: Patient states he is feeling okay. He reports plans for surgery, possible Patti fundoplication, per Dr. Esquivel on Tuesday. OBJECTIVE: Vital Signs: Temperature 98 degrees, pulse 72, respirations 20, blood pressure 132/84. LABORATORY: Hematology: White count 8.62, hemoglobin 10.9, hematocrit 36.6, platelets 370,000. Chemistry: Sodium 140, potassium 4.7, chloride 102, CO2 of 31, BUN 19, creatinine 0.9, glucose 92. ASSESSMENT: 1. Anemia. 2. Esophagogastroduodenoscopy findings showing large hiatal hernia with Randy lesion. He has been evaluated by Dr. Esquivel. 3. Paraesophageal hernia. 4. History of cerebral palsy. PLAN: Continue supportive care. Continue to monitor hemoglobin and hematocrit. He has plans for possible surgery on Tuesday. We will continue to be available as needed. Dictated by MERARY Blanco for Alejandro Pat MD cc: MERARY Gibbs MD [facility]
[2016-10-13] MEDS: DESYREL PO SCH (21:16)
[2016-10-13] MEDS: REQUIP PO SCH (21:16)
[2016-10-14] MEDS: PRILOSEC PO SCH (06:09)
[2016-10-14] MEDS ORDERED: KEFZOL 1 GM/D5W 1 GM/50 ML IVPB IV ONE (09:36)
[2016-10-14] MEDS: NICODERM PATCH TD SCH (09:38)
--- NOTE | 2016-10-14 09:51 | PROGRESS NOTE ---
DATE: 10/14/2016 SUBJECTIVE: Mr. Santos is feeling good. He ate almost all of his breakfast. He understands the plan, apparently surgery in the morning. He is hoping he can go home on Tuesday. OBJECTIVE: Vital signs: He remains afebrile. Temperature 97.8, pulse 64, respirations 18, blood pressure 119/72. HEENT: Pupils are equal and round. Lungs: Clear in all lung serra. Cardiovascular: Regular rhythm and rate without murmur, S3. Urine output is 1700 mL. ASSESSMENT AND PLAN: 1. Anemia. 2. Esophageal duodenoscopy findings show enlarged showing large hiatal hernia with Randy lesion that has been evaluated by Dr. Esquivel. He is to have surgery, it is my understanding, tomorrow morning. 3. Paraesophageal hernia. 4. History of cerebral palsy. 5. He does have microcytic anemia and his hematocrit is stable at 36. 6. Dr. Esquivel has evaluated him on 10/08/2016 and I believe is planning Patti fundoplication in the morning. cc: Kemar Shell MD
[2016-10-14] MEDS: REQUIP PO SCH (21:23)
[2016-10-14] MEDS: DESYREL PO SCH (21:24)
[2016-10-15] MEDS: PRILOSEC PO SCH (06:20)
[2016-10-15] MEDS ORDERED: DIPRIVAN 1% ONE (07:27)
[2016-10-15] MEDS ORDERED: XYLOCAINE-MPF 2% ONE (07:29)
[2016-10-15] MEDS ORDERED: QUELICIN (DOSE) ONE (07:29)
[2016-10-15] MEDS ORDERED: SENSORCAINE 0.25%/EPI 1:200,000 ONE (07:37)
[2016-10-15] MEDS ORDERED: LR 1,000 ML ONE (07:38)
[2016-10-15] MEDS ORDERED: SODIUM CHLORIDE 0.9% 10 ML ONE (07:50)
[2016-10-15] MEDS ORDERED: NORCURON ONE (07:50)
[2016-10-15] MEDS ORDERED: FENTANYL ONE (07:51)
[2016-10-15] MEDS ORDERED: KEFZOL 1 GM/D5W 1 GM/50 ML IVPB IV ONE (08:00)
[2016-10-15] MEDS ORDERED: ROBINUL ONE ×2 (08:41→10:00)
[2016-10-15] MEDS ORDERED: ZOFRAN ONE (09:27)
[2016-10-15] MEDS ORDERED: DECADRON ONE (09:27)
[2016-10-15] MEDS ORDERED: NEOSTIGMINE ONE (10:00)
[2016-10-15] MEDS ORDERED: OFIRMEV 1000 MG/ISOTONIC SOLN 1,000 MG/100 ML BOTTLE ONE (10:00)
[2016-10-15] MEDS: DILAUDID ONE ×3 (11:13→14:41)
--- NOTE | 2016-10-15 11:31 | Diag Imaging Result Doc PS360 ---
EXAM: CHEST-PORTABLE HISTORY: post op TECHNIQUE: AP portable at 1122 COMMENT: Considering differences in technique compared to 10/05/2016 there is been no significant change in the appearance of the chest. IMPRESSION: Stable chest. Electronically signed by Alen Cobian 10/15/2016 11:29 AM
[2016-10-15] MEDS: NICODERM PATCH TD SCH (13:01)
--- NOTE | 2016-10-15 13:40 | OPERATIVE NOTE ---
PROCEDURE DATE: 10/15/2016 NAME OF THE PROCEDURE: Laparoscopic Patti fundoplication. SURGEON: Olivier Esquivel MD. CLINICAL LAB SPECIALIST: Earnest Salgado RN. PREOPERATIVE DIAGNOSIS: Symptomatic large paraesophageal hernia with Randy lesions and chronic blood-loss anemia. POSTOPERATIVE DIAGNOSIS: Symptomatic large paraesophageal hernia with Randy lesions and chronic blood-loss anemia. FINDINGS: Half the stomach was herniated into the mediastinum. DESCRIPTION OF PROCEDURE: Satisfactory general endotracheal anesthesia was achieved. I passed the small Cook catheter easily into the esophagus. We then passed the 58 bougie down to about 20 cm. The patient was placed in Kemar stirrups. Abdomen was prepped and draped in a sterile fashion. We measured 15 cm below the xiphoid. We anesthetized the skin there vertically and made an incision, dissected down to the fascia. We scored the fascia, introduced 11 trocar Optiview technique. Under direct visualization we introduced an 11 trocar in the left mid abdomen. We then anesthetized the skin of the right upper quadrant. We made a small incision, used a hemostat into the abdominal cavity. We then introduced the medium Stefani retractor for the left lobe of the liver. We placed it under the left lobe of the liver. We then placed the patient in reverse Trendelenburg. This allowed us to position the left lobe of the liver appropriately. We attached the Stefani retractor. Then under direct visualization introduced an 11 trocar in the midepigastrium and one in the left upper quadrant. We introduced the laparoscopic Esthela through the left mid abdomen trocar, grasped the stomach and reduced the stomach out of the mediastinum. We then turned our attention to the right side, divided the gastrohepatic ligament with the ligature and went down to the right jorge. We then divided the tissue attached to the right jorge until we entered the retroesophageal space and the paraesophageal space. We then turned our attention to the greater curve, divided the greater omentum from the greater curve and I continued to dissect from caudad to cephalad up to the left jorge. We divided the short gastrics. Once we reached the left jorge we then divided the tissue attached to the left jorge and into the rectus of the paraesophageal space. We then reduced the hernia sac out of the mediastinum leaving it attached to the esophagus but bringing it out of the mediastinum from left to right. The anterior vagus was identified and protected from harm. We then again identified the hernia sac on the right side. We reduced it as well. There was retroesophageal fat that we reduced out of the mediastinum. The posterior vagus was identified and protected from harm. We turned our attention back to the right side. We identified the window behind the esophagus. We identified the left jorge. At this point, we attempted to advance the large bougie over the small Cook catheter but it would not advance easily so I aborted further attempts and had it removed. We gauged where we felt the appropriate closure to the diaphragm would be and this was long term up the muscle. We then used a 0 silk Endo Stitch and placed it to approximate the left jorge to the right jorge. Subsequent to that, we used two 0 Surgidac stitches to approximate the jorge. This left an adequate opening for the esophagus. We then used a reticulating grasper and passed it around the esophagus from right to left. We then grasped the greater curve and delivered it around the esophagus. We took a 0 endo-stitch from the anterior stomach wall to the esophagus to the wrapped stomach and secured it. We did an additional stitch from the anterior stomach to the wrapped stomach about a cm and a half caudad to the 1st stitch. We then used a 0 Surgidac between those two from the anterior stomach to the wrapped stomach. This thereby completed our wrap. The wrap was adequately loose. Hemostasis was satisfactory. The small Cook catheter was then removed. Again hemostasis was satisfactory. We flattened the patient at this point and used a old Edwin- Usama wound closure for each trocar site except the 1 just above the umbilicus. We removed the medium retractor from underneath the left lobe of the liver and upon removing it , hemostasis remained satisfactory. The left lobe of the liver looked satisfactory. As I mentioned, we put the Edwin Thomasen 2-0 Polysorb through the abdominal wall for each trocar site except the umbilical one. We then desufflated, removed all our trocars. We closed the fascia at the supraumbilical incision under direct visualization with 2-0 Polysorb stitch. We then closed the skin at each incision with 4-0 Polysorb subcuticular stitches. Sterile OpSite were applied. He tolerated it well. Was sent to the recovery room in satisfactory condition. cc: Olivier Esquivel MD [facility]
[2016-10-15] MEDS: MORPHINE IV PRN ×4 (14:17→23:12)
--- NOTE | 2016-10-15 14:49 | PROGRESS NOTE ---
DATE: 10/15/2016 SUBJECTIVE: He is 61 years old, he underwent Patti fundoplication yesterday. He is very sore and is requesting more for pain. OBJECTIVE: Vital Signs: Temperature 98.3 degrees, pulse 56, respiration is 12, blood pressure 143/81. Lungs: Clear in all lung serra. Cardiovascular: Regular rhythm and rate without murmur or S3. Abdomen: Soft. Skin: Warm and dry. Genitourinary: Urine output was 3600. DIAGNOSTIC DATA: Chest x-ray from today: Stable chest. ASSESSMENT AND PLAN: 1. Symptomatic large paraesophageal hernia with Randy's lesion, chronic blood-loss anemia. Underwent laparoscopic Patti fundoplication. He is in a lot of discomfort at the present time. 2. History of cerebral palsy. 3. Microcytic anemia from chronic blood loss. His present orders: He does not want the morphine, he says it does not seem to help him much but he has had ordered p.r.n. I will let him try a little bit of Dilaudid p.r.n. to help with the pain, so will do Dilaudid 1 mg IV q.3 hours p.r.n. pain. cc: Kemar Shell MD
[2016-10-16] MEDS: MORPHINE IV PRN ×6 (01:24→22:00)
[2016-10-16] MEDS: ZOFRAN IV PRN ×2 (06:30→10:56)
[2016-10-16 06:35] LABS: AGAP 11; BUN 19 mg/dL (8-22); CALCIUM 9.6 mg/dL (8.8-10.2); CHLORIDE 97 mmol/L (98-107); COSMO 273; POTASSIUM 4.3 mmol/L (3.5-5.1); SODIUM 135 mmol/L (136-145); TCO2 27 mmol/L (25-35)
[2016-10-16 06:43] LABS: BASO% 0.3 % (0.0-0.8); EOS# 0.32 X1000 (0.0-0.7); EOS% 2.3 % (0.0-10.0); HEMOGLOBIN 11.3 g/dL (14.0-18.0); IMM GRAN# 0.04 X1000 (0.0-0.04); IMM GRAN% 0.3 % (0.0-0.5); LYMPH# 1.54 X1000 (1.2-3.4); LYMPH% 11.1 % (20.5-51.1); MCH 22.9 PG (27-31); MCHC 29.7 g/dL (33-37); MCV 77.1 FL (81-99); MONO# 1.72 X1000 (0.11-0.59); MONO% 12.4 % (1.7-9.3); MPV 9.5 FL (7.4-10.4); NEUT% 73.6 % (42.2-75.2); PLT 372 X1000 (130-400); RBC 4.93 XMIL (4.7-6.1)
[2016-10-16 06:44] LABS: MANUAL DIFF NEEDED? NO
[2016-10-16] MEDS: NICODERM PATCH TD SCH (10:23)
[2016-10-16] MEDS ORDERED: SODIUM CHLORIDE 0.9% 10 ML ONE (10:48)
--- NOTE | 2016-10-16 12:03 | PROGRESS NOTE ---
DATE: 10/16/2016 Mr. Santos is now postop day 1 from a laparoscopic Patti fundoplication per Dr. Esquivel. He is awake. He is complaining of some abdominal pain probably related to his trocars. His heart rate 63, blood pressure 122/73, O2 saturation 94%. His urine output is adequate. He is afebrile. His white blood cell count 13.8, hematocrit 38%. BUN and creatinine are 19 and 0.8. PLAN: We will give him clear liquids today and follow his clinical course. cc: Samara Patino MD
--- NOTE | 2016-10-16 13:00 | PROGRESS NOTE ---
DATE: 10/16/2016 SUBJECTIVE: He had a better night. Feeling a little better. Still very sore. OBJECTIVE: Vital Signs: Temperature 97.7 degrees, pulse 63, respirations 20, blood pressure 122/70. HEENT: Pupils are equal and round. Lungs: Clear in all lung serra. Cardiovascular: Regular rhythm and rate, without murmur or S3. Abdomen: Soft. Skin: Warm and dry. URINE OUTPUT: 1500 mL. LABORATORY: White count 13,830, hematocrit 38 and stable. MCV is 77. Chemistry: Sodium 135, potassium 4.3, chloride 97, BUN 19, creatinine 0.8, magnesium unremarkable. ASSESSMENT AND PLAN: 1. Symptomatic large paraesophageal hernia, Randy lesion, status post Patti fundoplication yesterday. Doing well. Pain control better. We will get him up out of bed. Continue clear liquids for now, maybe advance to soft food tomorrow. 2. History of cerebral palsy. 3. Microcytic anemia from chronic blood loss. Blood counts stable. REVIEW OF ORDERS: I do not see any change at this point. He does have a nicotine patch. cc: Kemar Shell MD
[2016-10-16] MEDS: DILAUDID IV PRN (20:33)
[2016-10-17] MEDS: DILAUDID IV PRN ×3 (00:17→20:43)
[2016-10-17] MEDS: MORPHINE IV PRN ×4 (02:04→22:34)
[2016-10-17] MEDS: NICODERM PATCH TD SCH (08:17)
[2016-10-17] MEDS ORDERED: DILAUDID IV ONE (09:21)
[2016-10-17] MEDS: ROBAXIN PO PRN ×2 (09:47→19:17)
--- NOTE | 2016-10-17 09:54 | PROGRESS NOTE ---
DATE: 10/17/2016 SUBJECTIVE: He is in a lot of pain, cramping and appears to have some muscle spasm in the left upper quadrant. Otherwise, he is breathing comfortably. He remains afebrile. PHYSICAL EXAMINATION: Vital Signs: Temperature 99.1 degrees, pulse 110, respirations 22, blood pressure 146/101. HEENT: Pupils are equal and round. Lungs: Clear in all lung serra. Cardiovascular Examination: Regular rhythm and rate without murmur or S3. Abdomen: Soft. Skin: Is warm and dry. Is and Os: Good urine output, 500 mL. LAB: Reviewed from yesterday. Sodium 135, potassium 4.3, chloride 97, BUN 19, creatinine 0.8. ASSESSMENT AND PLAN: 1. Symptomatic large paraesophageal hernia, Randy's lesion, status post Patti fundoplication. Doing well but he is in a lot of pain. We will give him a little extra dose of Dilaudid now and try muscle relaxers. 2. History of cerebral palsy. 3. Microcytic anemia, which is stable. We will check electrolytes again in the morning. If he is in less pain, we have advanced his diet, so maybe he can go home tomorrow, depending on how he is doing. I do want to get him up out of bed. We have not advanced his diet yet. Expect we will advance it to a soft diet soon. cc: Kemar Shell MD
--- NOTE | 2016-10-17 10:30 | PROGRESS NOTE ---
DATE: 10/17/2016 SUBJECTIVE: Mr. Santos is a 61-year-old white male, now postop day 2 from a laparoscopic Patti fundoplication per Dr. Esquivel. He continues to complain of abdominal pain, around the trocar sites. He does have a clear liquid diet. It does not seem like he has taken much of that today. He still has a [place] catheter tube in place. OBJECTIVE: There are no vital signs recorded for this morning. He is sitting up in the bed. He is awake and cooperative. Wounds were dressed. PLAN: Increase his activity and discontinue his [place] catheter tube. He will remain hospitalized. Dr. Esquivel returns tomorrow for re-evaluation. cc: Samara Patino MD
[2016-10-18] MEDS: MORPHINE IV PRN ×3 (00:42→05:31)
[2016-10-18 06:03] LABS: BASO% 0.1 % (0.0-0.8); EOS# 0.07 X1000 (0.0-0.7); EOS% 0.3 % (0.0-10.0); HEMATOCRIT 35.9 % (42.0-52.0); HEMOGLOBIN 10.6 g/dL (14.0-18.0); IMM GRAN# 0.07 X1000 (0.0-0.04); IMM GRAN% 0.3 % (0.0-0.5); LYMPH# 0.83 X1000 (1.2-3.4); LYMPH% 3.9 % (20.5-51.1); MANUAL DIFF NEEDED? YES; MCH 22.8 PG (27-31); MCHC 29.5 g/dL (33-37); MCV 77.4 FL (81-99); MONO# 2.15 X1000 (0.11-0.59); MONO% 10.2 % (1.7-9.3); MPV 9.5 FL (7.4-10.4); NEUT% 85.2 % (42.2-75.2); PLT 345 X1000 (130-400); RBC 4.64 XMIL (4.7-6.1)
[2016-10-18 06:37] LABS: BANDS 2 % (0-1); LYMPHS 8 % (21-51); MONO 7 % (1-9)
[2016-10-18] MEDS: DILAUDID IV PRN (06:38)
[2016-10-18] MEDS: NICODERM PATCH TD SCH (08:18)
[2016-10-18 08:36] LABS: AGAP 11; ALBUMIN 3.4 g/dL (3.5-5.0); ALKALINE PHOSPHATASE 73 U/L (32-122); BUN 14 mg/dL (8-22); CALCIUM 8.8 mg/dL (8.8-10.2); CHLORIDE 94 mmol/L (98-107); COSMO 270; GOT 40 U/L (10-34); GPT 28 U/L (10-44); MAGNESIUM 1.7 mg/dL (1.5-2.7); SODIUM 134 mmol/L (136-145); TCO2 29 mmol/L (25-35); TOTAL BILIRUBIN 1.74 mg/dL (0.20-1.00); TOTAL PROTEIN 5.9 g/dL (6.3-8.3)
--- NOTE | 2016-10-18 09:29 | Diag Imaging Result Doc PS360 ---
EXAM: BA SWALLOW-ESOPHAGUS HISTORY: post Patti TECHNIQUE: Water-soluble contrast swallow COMMENT: Several swallows were performed with water-soluble contrast. Positioning the patient was difficult due to his post operative condition. There is no evidence of extravasation of contrast nor is there obstruction of the gastroesophageal junction. Note was made during fluoroscopy of constipation with retained barium in the distal colon. IMPRESSION: 1. No evidence of obstruction of the GE junction or extravasation at the operative site. 2. Constipation. Electronically signed by Alen Cobian 10/18/2016 9:27 AM
[2016-10-18] MEDS ORDERED: NS 250 ML ONE (10:30)
[2016-10-18] MEDS: LEVAQUIN 500 MG/D5W 500 MG/100 ML IVPB IV SCH (10:36)
[2016-10-18] MEDS: CLINDAMYCIN 900 MG/NS 900 MG/50 ML IVPB IV SCH ×2 (11:55→20:45)
--- NOTE | 2016-10-18 15:05 | PROGRESS NOTE ---
DATE: 10/18/2016 SUBJECTIVE: Mr. Santos is feeling better. The pain is less and he wants to go back to just liquid diet. OBJECTIVE: Vital signs: Remains afebrile, temperature 99.5 degrees, pulse 114, respirations 18, blood pressure 136/75, CVP less than 6 cm. Lungs: Clear in all lung serra. Cardiovascular: Regular rhythm and rate without murmur or S3. Abdomen: Soft. Urine output is 2000 mL. LAB: White count has gone up 21,030, hematocrit 35, platelet count 345,000. Sodium 134, potassium 4.0, chloride 94, BUN 14, creatinine 0.9, AST is 40, ALT 28. Barium swallow done this morning. No evidence of obstruction at GE junction or extravasation at the operative site. He does have some constipation. ASSESSMENT AND PLAN: 1. He has had Patti fundoplication for antione esophageal hernia, hiatal hernia and he was in lot of pain yesterday. We did try and advance at his request a soft diet. He wants me go back to liquids, I will do that. 2. Elevated white blood cell count. I do not see any active infection. 3. Microcytic anemia and his lab hematocrit 35, hemoglobin 10.4. 4. Review of his orders. Getting Dilaudid 1 mg IV q.3 hours p.r.n. I gave him a muscle relaxer. I have him on clindamycin 900 mg IV q.8 and he is on Levaquin started today because white count, Dr. Esquivel started those, will back him down to liquids. cc: Kemar Shell MD
[2016-10-19] MEDS: CLINDAMYCIN 900 MG/NS 900 MG/50 ML IVPB IV SCH ×2 (02:14→11:33)
[2016-10-19 06:51] LABS: BASO% 0.1 % (0.0-0.8); EOS# 0.08 X1000 (0.0-0.7); EOS% 0.4 % (0.0-10.0); HEMATOCRIT 34.9 % (42.0-52.0); HEMOGLOBIN 10.7 g/dL (14.0-18.0); IMM GRAN# 0.15 X1000 (0.0-0.04); IMM GRAN% 0.7 % (0.0-0.5); LYMPH# 0.56 X1000 (1.2-3.4); LYMPH% 2.7 % (20.5-51.1); MANUAL DIFF NEEDED? NO; MCH 23.3 PG (27-31); MCHC 30.7 g/dL (33-37); MONO% 16.7 % (1.7-9.3); MPV 9.4 FL (7.4-10.4); NEUT% 79.4 % (42.2-75.2); PLT 367 X1000 (130-400); RBC 4.59 XMIL (4.7-6.1)
--- NOTE | 2016-10-19 08:04 | Diag Imaging Result Doc PS360 ---
EXAM: CHEST-PORTABLE INDICATION: leukocytosis TECHNIQUE: One view COMPARISON: 10/15/2016 FINDINGS: The lungs are grossly clear. There is no discrete pleural fluid collection or pneumothorax. The cardiomediastinal silhouette and central vasculature are grossly unremarkable. IMPRESSION: No evidence of acute pathology by plain radiograph. Electronically signed by Sherwin Sheppard 10/19/2016 8:02 AM
[2016-10-19] MEDS: LEVAQUIN 500 MG/D5W 500 MG/100 ML IVPB IV SCH ×2 (08:40→09:58)
[2016-10-19] MEDS: NORCO-10 PO PRN (08:47)
[2016-10-19] MEDS: NICODERM PATCH TD SCH (09:58)
--- NOTE | 2016-10-19 14:15 | PROGRESS NOTE ---
DATE: 10/19/2016 He states his pain is a little less. He says feels antibiotics are making him sick. Temp 97.9 degrees, pulse 98.6, respirations 19, blood pressure 118/69, CVP less than 6 cm.Lungs: Clear in all lung serra. Cardiovascular: Regular rhythm and rate without murmur or S3. Abdomen: Soft. Skin: Is warm and dry. His urine output yesterday, looks like his output was 1200 mL. Chest x-ray from 10/19 no evidence of acute pathology. Barium swallow done yesterday, no evidence of obstruction and did have some constipation. ASSESSMENT AND PLAN: 1. Status post Patti fundoplication. Esophageal hernia. Quite a bit of pain. He has had residual leukocytosis but did not really see any evidence of infection. It is concerning the antibiotics are making him feel worse. 2. History of cerebral palsy. 3. Microcytic anemia, blood loss anemia from Randy lesions. Blood counts seem to be stable. So I would like to see if we can get him off anything that can contribute to the nausea. Will DC his Levaquin and clindamycin, has not had any fever. I do not see any evidence of bacterial infection. See if he can have less nausea and feel a little better. cc: Kemar Shell MD
[2016-10-19] MEDS: NS 1,000 ML IV SCH (14:38)
[2016-10-20] MEDS: NS 1,000 ML IV SCH ×3 (02:29→22:10)
[2016-10-20 07:32] LABS: HEMATOCRIT 33.2 % (42.0-52.0); LYMPH# 0.51 X1000 (1.2-3.4); LYMPH% 2.7 % (20.5-51.1); MCH 23.5 PG (27-31); MCHC 30.1 g/dL (33-37); MCV 77.9 FL (81-99); MONO# 2.32 X1000 (0.11-0.59); MONO% 12.1 % (1.7-9.3); MPV 9.9 FL (7.4-10.4); NEUT% 84.2 % (42.2-75.2); PLT 397 X1000 (130-400); RBC 4.26 XMIL (4.7-6.1)
[2016-10-20 07:57] LABS: MANUAL DIFF NEEDED? NO
[2016-10-20] MEDS: NICODERM PATCH TD SCH (08:34)
[2016-10-20 10:10] LABS: AGAP 12; BUN 17 mg/dL (8-22); CALCIUM 8.6 mg/dL (8.8-10.2); CHLORIDE 96 mmol/L (98-107); COSMO 273; POTASSIUM 3.5 mmol/L (3.5-5.1); SODIUM 136 mmol/L (136-145); TCO2 28 mmol/L (25-35)
[2016-10-20 10:14] LABS: BILIRUBIN URINE NEGATIVE (NEGATIVE); BLOOD URINE SMALL (NEGATIVE); COLOR YELLOW; GLUCOSE URINE NEGATIVE (NEGATIVE); LEUKOCYTES URINE NEGATIVE (NEGATIVE); NITRITE URINE NEGATIVE (NEGATIVE); PROTEIN URINE 70 mg/dL (NEGATIVE); SP GRAVITY URINE 1.029; TURBIDITY URINE CLEAR (CLEAR); URINE MICRO REVIEW NEEDED? NO; URINE SOURCE CATH; UROBILINOGEN URINE NORMAL (NORMAL)
[2016-10-20 10:15] LABS: UR EPITHELIAL CELLS >10 /HPF (<10); URINE BACTERIA NEGATIVE /HPF; URINE RBC <10 /HPF (<10); URINE WBC <10 /HPF (<10)
[2016-10-20] MEDS: VANCOMYCIN ORAL SOLN PO SCH ×2 (13:23→20:30)
--- NOTE | 2016-10-20 16:32 | PROGRESS NOTE ---
DATE: 10/20/2016 SUBJECTIVE: The patient complains of abdominal pain and diarrhea. OBJECTIVE: Vital Signs: Temperature 98 degrees, blood pressure 120/68, heart rate 100, respirations 18, O2 sats 97% on room air. General: This is an elderly male, lying in bed, in no acute distress. Head: Normocephalic, atraumatic. Heart: S1, S2. Normal. Regular rate and rhythm. Lungs: Clear to auscultation bilaterally. Abdomen: Positive bowel sounds. Soft. Extremities: No edema. No cyanosis. Neurologic: The patient is alert and oriented. LABS: White blood cell count 19, hemoglobin 10, hematocrit 33, platelets 397, 000. Sodium 136, potassium 3.5, chloride 96, CO2 28, BUN 17, creatinine 0.7, glucose 90. ASSESSMENT AND PLAN: 1. C. difficile colitis. The patient has been started on Flagyl by Dr. Esquivel. 2. Status post laparoscopic Patti fundoplication secondary to a large paraesophageal hernia with Randy lesions. Management as per the general surgeon. 3. Leukocytosis. This is most likely secondary to C. difficile colitis. The patient was started on Flagyl today. 4. Tobacco dependence. Continue on the NicoDerm patch. 5. Deep vein thrombosis prophylaxis. Will start the patient on SCDs. cc: Nohemi Gabriel MD MTDD
--- NOTE | 2016-10-20 20:49 | CONSULTATION ---
DATE OF CONSULTATION: 10/20/2016 CONCLUSION: The patient has Clostridium difficile diarrhea. I think this accounts for his leukocytosis. RECOMMENDATIONS: I agree with the decision to place the patient on p.o. vancomycin. DISCUSSION: The patient underwent a laparoscopic Patti fundoplication. Approximately 2 days ago, he developed diarrhea. The stool was positive for Clostridium difficile toxin. The patient's CBC shows a white count of 19,210, hemoglobin 10, platelet count is 397,000. The patient's creatinine is 0.7. The GFR is greater than 60. Urinalysis shows no white cells or bacteria. Blood and urine cultures are pending. REVIEW OF SYSTEMS: Eyes and Ears: The patient can hear and see well. Neck: No stiffness. Respiratory: No cough or shortness of breath. Cardiac: No chest pain or palpitations. Gastrointestinal: See above. The patient has severe diarrhea. He is not having any nausea or vomiting. Genitourinary: No dysuria or flank pain. Endocrine: He does not have diabetes or thyroid disease. Integument: No rashes. Bones, Joints, Muscles: He can move his legs, but he can only walk with the aid of crutches. His legs are like this because he had cerebral palsy. The remainder of the patient's review of systems was completed and was negative. PREVIOUS HOSPITALIZATIONS AND OPERATIONS: He has had multiple leg operations because of his cerebral palsy. MEDICAL DISEASES: Positive for cerebral palsy. Negative for diabetes mellitus and hypertension. INFECTIOUS DISEASE HISTORY: Negative for pneumonia and UTI. FAMILY HISTORY: Positive for cancer, COPD, and myocardial infarction. SOCIAL HISTORY: The patient lives in [place]. He is disabled. He lives with his girlfriend. He intermittently smokes. The last time that he stopped smoking was 3 weeks ago. He drinks alcoholic beverages. He does not abuse drugs. ALLERGIES: His chart lists no known drug allergies. HOME MEDICATIONS: He is on no home medications. PHYSICAL EXAMINATION: Vital Signs: Temperature is 98.8 degrees, pulse 100, respirations 18, blood pressure 120/68. Patient's weight is 160 pounds. General: This is a somewhat ill- appearing, middle-aged male. He is in no acute distress. Head, Eyes, Ears, Nose, and Throat: He is missing many of his teeth. The teeth he does have appear to have some caries. He can hear my spoken words. He can see near objects. Neck: No meningismus. Thorax: No increased AP diameter. Abdomen: Soft and nontender. The laparoscopic incisions all appear to be healing well. There is no drainage and there is no erythema around them. Neurologic: Patient is awake. He can move his arms well. He can barely move his legs, however. There is no tremor. His sensation was intact to touch. Integument: No rash noted. Thank you for the consult. cc: Roberto Ellis MD
[2016-10-20] MEDS: NORCO-10 PO PRN (22:10)
[2016-10-21] MEDS: VANCOMYCIN ORAL SOLN PO SCH ×4 (02:15→21:12)
[2016-10-21 07:18] LABS: BASO% 0.2 % (0.0-0.8); EOS# 0.94 X1000 (0.0-0.7); EOS% 4.1 % (0.0-10.0); HEMATOCRIT 31.7 % (42.0-52.0); HEMOGLOBIN 9.6 g/dL (14.0-18.0); IMM GRAN# 0.24 X1000 (0.0-0.04); IMM GRAN% 1.1 % (0.0-0.5); LYMPH# 1.19 X1000 (1.2-3.4); LYMPH% 5.3 % (20.5-51.1); MANUAL DIFF NEEDED? YES; MCH 23.1 PG (27-31); MCHC 30.3 g/dL (33-37); MCV 76.4 FL (81-99); MONO# 2.61 X1000 (0.11-0.59); MONO% 11.5 % (1.7-9.3); MPV 9.5 FL (7.4-10.4); NEUT% 77.8 % (42.2-75.2); PLT 423 X1000 (130-400); RBC 4.15 XMIL (4.7-6.1)
[2016-10-21 07:37] LABS: BANDS 4 % (0-1); EOS 10 % (1-10); LYMPHS 14 % (21-51); MONO 4 % (1-9)
[2016-10-21 07:47] LABS: AGAP 9; BUN 12 mg/dL (8-22); CALCIUM 8.5 mg/dL (8.8-10.2); CHLORIDE 98 mmol/L (98-107); COSMO 270; POTASSIUM 2.9 mmol/L (3.5-5.1); SODIUM 135 mmol/L (136-145); TCO2 28 mmol/L (25-35)
[2016-10-21] MEDS ORDERED: POTASSIUM CHLORIDE 60 MEQ in NS 500 ML IV ONE (09:00)
[2016-10-21] MEDS: CULTURELLE PO SCH ×2 (10:06→21:11)
[2016-10-21] MEDS: NICODERM PATCH TD SCH (10:11)
[2016-10-21] MEDS: NS 1,000 ML IV SCH (15:46)
[2016-10-22] MEDS: VANCOMYCIN ORAL SOLN PO SCH ×4 (03:10→22:15)
[2016-10-22] MEDS: NS 1,000 ML IV SCH ×2 (03:11→18:54)
--- NOTE | 2016-10-22 03:13 | PROGRESS NOTE ---
DATE: 10/21/2016 SUBJECTIVE: The patient is resting comfortably in bed. The patient is still having liquid stools. OBJECTIVE: Vital Signs: Temperature 99, blood pressure 113/62, heart rate 82, respirations 19, O2 saturations 95% on room air. General: This is an elderly male, lying in bed, in no acute distress. Head: Normocephalic, atraumatic. Heart: S1, S2. Normal. Regular rate and rhythm. Lungs: Clear to auscultation bilaterally. No wheezing. No rales. No rhonchi. Abdomen: Positive bowel sounds. Soft, nontender, nondistended. Extremities: No edema. No cyanosis. No calf tenderness. Neurologic: The patient is awake and alert. LABORATORY STUDIES: White blood cell count 22, hemoglobin 9.6, hematocrit 31, platelets 323. Sodium 135, potassium 3.9, chloride 98, CO2 28, BUN 12, creatinine 0.7, glucose 103. ASSESSMENT AND PLAN: 1. C. difficile colitis. Continue on oral vancomycin, plus lactobacillus. 2. Leukocytosis. The patient's white blood cell count is higher today. We will continue on the current therapy. 3. Status post laparoscopic Patti fundoplication, secondary to a large paraesophageal hernia, with Randy lesions. Management as per the general surgeon. 4. Tobacco dependence. Continue on the NicoDerm patch. 5. Deep vein thrombosis prophylaxis. Continue with sequential compression devices. cc: Nohemi Gabriel MD
[2016-10-22 07:24] LABS: BASO% 0.6 % (0.0-0.8); EOS# 1.26 X1000 (0.0-0.7); HEMATOCRIT 34.6 % (42.0-52.0); HEMOGLOBIN 10.4 g/dL (14.0-18.0); IMM GRAN# 0.67 X1000 (0.0-0.04); IMM GRAN% 4.3 % (0.0-0.5); LYMPH# 1.64 X1000 (1.2-3.4); LYMPH% 10.4 % (20.5-51.1); MANUAL DIFF NEEDED? YES; MCH 23.1 PG (27-31); MCHC 30.1 g/dL (33-37); MCV 76.7 FL (81-99); MONO# 2.23 X1000 (0.11-0.59); MONO% 14.2 % (1.7-9.3); MPV 9.6 FL (7.4-10.4); NEUT% 62.5 % (42.2-75.2); PLT 426 X1000 (130-400); RBC 4.51 XMIL (4.7-6.1)
[2016-10-22 07:37] LABS: MAGNESIUM 1.8 mg/dL (1.5-2.7)
[2016-10-22 07:39] LABS: AGAP 10; BUN 9 mg/dL (8-22); CALCIUM 8.1 mg/dL (8.8-10.2); CHLORIDE 100 mmol/L (98-107); COSMO 270; POTASSIUM 3.1 mmol/L (3.5-5.1); SODIUM 136 mmol/L (136-145); TCO2 26 mmol/L (25-35)
[2016-10-22 07:56] LABS: BANDS 8 % (0-1); EOS 14 % (1-10); LYMPHS 12 % (21-51)
[2016-10-22 07:57] LABS: HYPOCHROM 2+
[2016-10-22] MEDS: NICODERM PATCH TD SCH (09:22)
[2016-10-22] MEDS: CULTURELLE PO SCH ×2 (09:23→22:13)
[2016-10-22] MEDS ORDERED: KLOR-CON PO ONE ×2 (10:14→16:54)
--- NOTE | 2016-10-22 16:00 | PROGRESS NOTE ---
DATE: 10/22/2016 PRESENT ILLNESS: The patient has Clostridium difficile diarrhea. MEDICATIONS: The patient is taking p.o. vancomycin 250 mg every 6 hours. PHYSICAL EXAMINATION: Vital Signs: Temperature is 98.3 degrees, pulse 77, respirations 19, blood pressure 123/69. Generally: The patient looks still ill. He does admit however that he is having less frequent loose stools and his stools are not quite as loose as they had been a few days ago. Lungs: Clear to auscultation. Cardiovascular: Regular heart rate. Abdomen: Soft and nontender. The laparoscopic incisions are all healing well. They are not erythematous or draining. Neurologic: Patient is awake. He moves his arms quite well but he can barely move his legs at all. LAB AND X-RAY: The CBC today shows that the white count is down to 15,750, hemoglobin 10.4, and platelet count 426,000. Creatinine 0.6. GFR is greater than 60. Blood and urine cultures are negative. ASSESSMENT AND PLAN: Patient has Clostridium difficile diarrhea. The plan will be to continue p.o. vancomycin. COMORBIDITIES: In this patient include having had recent surgery and receiving an antibiotic. cc: Roberto Ellis MD
--- NOTE | 2016-10-22 16:58 | PROGRESS NOTE ---
DATE: 10/22/2016 SUBJECTIVE: The patient is resting comfortably in bed. He states that he is still having liquid stools, but they have decreased in frequency. He is eating all of his meals. OBJECTIVE: Vital Signs: Temperature 98.3 degrees, blood pressure 123/69, heart rate 77, respirations 19, O2 saturations 97% on room air. General: This is an elderly male, lying in bed, in no acute distress. Head: Normocephalic, atraumatic. Heart: S1, S2. Normal. Regular rate and rhythm. Lungs: Clear to auscultation bilaterally. No wheezes, no rales, no rhonchi. Abdomen: Positive bowel sounds. Soft, nontender, nondistended. Extremities: No edema. No cyanosis. No calf tenderness. Neurologic: The patient is alert and oriented x3. LABORATORY STUDIES: White blood cell count 15, hemoglobin 10, hematocrit 33, platelets 426,000. Potassium 3.1, BUN 9, creatinine 0.6, glucose 90, sodium 136. ASSESSMENT AND PLAN: 1. C. difficile colitis. Today is day 2 of therapy with vancomycin. Continue on lactobacillus. 2. Leukocytosis. Slowly improving. 3. Status post laparoscopic Patti fundoplication secondary to a large paraesophageal hernia. 4. Tobacco dependence. Continue on the NicoDerm patch. 5. Hypokalemia. Will replace the patient's potassium. 6. Deep vein thrombosis prophylaxis. Will continue with sequential compression devices. cc: Nohemi Gabriel MD
[2016-10-23] MEDS: VANCOMYCIN ORAL SOLN PO SCH ×4 (01:31→21:26)
[2016-10-23 06:33] LABS: BASO% 1.7 % (0.0-0.8); EOS# 1.25 X1000 (0.0-0.7); EOS% 10.8 % (0.0-10.0); HEMATOCRIT 34.3 % (42.0-52.0); HEMOGLOBIN 10.3 g/dL (14.0-18.0); IMM GRAN# 0.84 X1000 (0.0-0.04); IMM GRAN% 7.3 % (0.0-0.5); LYMPH# 1.54 X1000 (1.2-3.4); LYMPH% 13.3 % (20.5-51.1); MANUAL DIFF NEEDED? YES; MCH 23.3 PG (27-31); MCV 77.6 FL (81-99); MONO# 2.13 X1000 (0.11-0.59); MONO% 18.5 % (1.7-9.3); MPV 9.4 FL (7.4-10.4); NEUT% 48.4 % (42.2-75.2); PLT 452 X1000 (130-400); RBC 4.42 XMIL (4.7-6.1)
[2016-10-23 06:50] LABS: AGAP 8; BUN 10 mg/dL (8-22); CALCIUM 8.5 mg/dL (8.8-10.2); CHLORIDE 105 mmol/L (98-107); COSMO 279; POTASSIUM 3.7 mmol/L (3.5-5.1); SODIUM 140 mmol/L (136-145); TCO2 27 mmol/L (25-35)
[2016-10-23 06:52] LABS: MAGNESIUM 1.9 mg/dL (1.5-2.7)
[2016-10-23 07:00] LABS: BANDS 2 % (0-1); EOS 10 % (1-10); LYMPHS 13 % (21-51); MONO 20 % (1-9)
[2016-10-23 07:02] LABS: HYPOCHROM OCCASIONAL
--- NOTE | 2016-10-23 08:13 | PROGRESS NOTE ---
DATE: 10/23/2016 SUBJECTIVE: Patient doing well. No major issues. Still having diarrhea but able tolerate his diet. OBJECTIVE: Vital Signs: Patient is currently afebrile. His vital signs are stable. General: No acute distress. Cardiovascular: Regular rate and rhythm. Lungs: Grossly clear. Abdomen: Soft, nondistended. LABORATORY: White blood count 11, which is down from 15. Hematocrit is 34, platelet count 452,000. ASSESSMENT AND PLAN: A 61-year-old male status post Patti fundoplication, now with Clostridium difficile colitis. Postoperative state: at this time, patient is clinically doing well from a General Surgery point of view. He is being treated for Clostridium difficile colitis. Once that has been resolved and the consultants think he can go home, it is safe from a General Surgery point of view for him to be discharged home and follow up with Dr. Esquivel. cc: López Her MD MTDD
[2016-10-23] MEDS: CULTURELLE PO SCH ×2 (09:02→21:26)
--- NOTE | 2016-10-23 17:00 | PROGRESS NOTE ---
DATE: 10/23/2016 SUBJECTIVE: The patient is resting comfortably in bed. He reports that his stools are still liquid but they are less frequent. He is eating well. OBJECTIVE: Vital signs: Temperature is 98, blood pressure 147/87, heart rate 88, respirations 20, and O2 saturation 97% on room air. General: This is an elderly male lying in bed in no acute distress. HEENT: Head is normocephalic, atraumatic. Heart: S1 and S2 are normal. Regular rate and rhythm. Lungs: Clear to auscultation bilaterally. Abdomen: Positive bowel sounds. Soft, nontender, and nondistended. Extremities: No edema. No cyanosis. Neurological: The patient is alert and oriented times 3. LABORATORY DATA: White blood cell count is 11, hemoglobin 10, hematocrit 34, and platelets 452. Sodium is 140, potassium 3.7, chloride 105, CO2 27, BUN 10, creatinine 0.6, and glucose 100. ASSESSMENT AND PLAN: 1. Clostridium difficile colitis. Continue on vancomycin. Today is day 3 of therapy. 2. Leukocytosis, improved. 3. Status post laparoscopic Patti fundoplication secondary to a large paraesophageal hernia, stable. 4. Tobacco dependence. Continue on the NicoDerm patch. 5. Deep vein thrombosis prophylaxis. 6. We will consult Physical Therapy. cc: Nohemi Gabriel MD
[2016-10-24] MEDS ORDERED: TYLENOL PO PRN (00:48)
[2016-10-24] MEDS: VANCOMYCIN ORAL SOLN PO SCH ×4 (02:58→21:15)
[2016-10-24 07:17] LABS: EOS# 1.28 X1000 (0.0-0.7); EOS% 10.4 % (0.0-10.0); HEMATOCRIT 34.7 % (42.0-52.0); HEMOGLOBIN 10.3 g/dL (14.0-18.0); IMM GRAN# 1.14 X1000 (0.0-0.04); IMM GRAN% 9.3 % (0.0-0.5); LYMPH# 2.06 X1000 (1.2-3.4); LYMPH% 16.7 % (20.5-51.1); MANUAL DIFF NEEDED? YES; MCH 23.2 PG (27-31); MCHC 29.7 g/dL (33-37); MCV 78.2 FL (81-99); MONO# 1.98 X1000 (0.11-0.59); MONO% 16.1 % (1.7-9.3); MPV 9.2 FL (7.4-10.4); NEUT% 45.5 % (42.2-75.2); PLT 440 X1000 (130-400); RBC 4.44 XMIL (4.7-6.1)
[2016-10-24 07:50] LABS: AGAP 7; BUN 12 mg/dL (8-22); CALCIUM 8.4 mg/dL (8.8-10.2); CHLORIDE 104 mmol/L (98-107); COSMO 281; POTASSIUM 3.6 mmol/L (3.5-5.1); SODIUM 141 mmol/L (136-145); TCO2 30 mmol/L (25-35)
[2016-10-24] MEDS: CULTURELLE PO SCH ×2 (08:22→21:15)
[2016-10-24 10:13] LABS: BANDS 2 % (0-1); EOS 5 % (1-10); LYMPHS 14 % (21-51); MONO 18 % (1-9)
--- NOTE | 2016-10-24 17:09 | PROGRESS NOTE ---
DATE: 10/24/2016 SUBJECTIVE: The patient is resting comfortably in bed. He states that the liquid stools are slowing down. OBJECTIVE: Vital Signs: Temperature 97.8 degrees, blood pressure 140/81, heart rate 71, respirations 20, O2 saturations 97% on room air. General: This is an elderly male lying in bed in no acute distress. Head: Normocephalic, atraumatic. Heart: S1, S2 normal, regular rate and rhythm. Lungs: Clear to auscultation bilaterally. No wheezes, no rales, no rhonchi. Abdomen: Positive bowel sounds. Soft, nontender, nondistended. Extremities: No edema, no cyanosis, no calf tenderness. LABS: White blood cell count 12.3, hemoglobin 10, hematocrit 34, platelets 440,000. Sodium 141, potassium 3.6, chloride 104, CO2 30, BUN 12, creatinine 0.8, glucose 92. ASSESSMENT AND PLAN: 1. Clostridium difficile colitis. Continue on vancomycin, today is day 4 of therapy. 2. Leukocytosis. Slowly improving. 3. Status post laparoscopic Patti fundoplication secondary to a large paraesophageal hernia. Stable. 4. Cerebral palsy. Aware. 5. Tobacco dependence. Continue on the NicoDerm patch. 6. Deep vein thrombosis prophylaxis. Continue with SCDs. 7. Continue with physical therapy. 8. Disposition. The patient states that he will be going home upon discharge. cc: Nohemi Gabriel MD
[2016-10-25] MEDS: VANCOMYCIN ORAL SOLN PO SCH ×2 (02:55→10:27)
[2016-10-25 06:36] LABS: BASO% 2.7 % (0.0-0.8); EOS# 1.37 X1000 (0.0-0.7); EOS% 11.1 % (0.0-10.0); HEMATOCRIT 35.2 % (42.0-52.0); HEMOGLOBIN 10.4 g/dL (14.0-18.0); IMM GRAN# 1.26 X1000 (0.0-0.04); IMM GRAN% 10.2 % (0.0-0.5); LYMPH# 1.96 X1000 (1.2-3.4); LYMPH% 15.8 % (20.5-51.1); MANUAL DIFF NEEDED? YES; MCH 23.2 PG (27-31); MCHC 29.5 g/dL (33-37); MCV 78.4 FL (81-99); MONO# 1.45 X1000 (0.11-0.59); MONO% 11.7 % (1.7-9.3); NEUT% 48.5 % (42.2-75.2); PLT 467 X1000 (130-400); RBC 4.49 XMIL (4.7-6.1)
[2016-10-25 06:59] LABS: AGAP 11; BUN 12 mg/dL (8-22); CALCIUM 8.2 mg/dL (8.8-10.2); CHLORIDE 101 mmol/L (98-107); COSMO 279; POTASSIUM 3.6 mmol/L (3.5-5.1); SODIUM 140 mmol/L (136-145); TCO2 28 mmol/L (25-35)
[2016-10-25 07:43] LABS: EOS 6 % (1-10); HYPOCHROM 2+; LYMPHS 20 % (21-51); MONO 8 % (1-9)
[2016-10-25] MEDS: CULTURELLE PO SCH (10:30)
[2016-10-25 10:57] VITALS: BP 114/75
[2016-10-25] MEDS ORDERED: PNEUMOVAX 23 IM ONE (12:11)
--- NOTE | 2016-10-28 11:40 | DISCHARGE SUMMARY ---
ADMISSION DATE: 10/05/2016 DISCHARGE DATE: 10/25/2016 FINAL DISCHARGE DIAGNOSES: 1. Status post Patti fundoplication secondary to a large paraesophageal hernia. 2. Randy lesions. 3. Severe iron deficiency anemia. 4. Clostridium difficile colitis. 5. Leukocytosis. 6. Cerebral palsy. CONSULTATIONS REQUESTED DURING THIS HOSPITAL STAY: 1. GI consultation with Dr. Pat. 2. General surgery consultation with Dr. Esquivel. PROCEDURES PERFORMED DURING THIS HOSPITAL STAY: 1. An EGD with flex sigmoidoscopy performed on 10/07/2016 which revealed a large hiatal hernia with Randy lesions and a normal flexible sigmoidoscopy. 2. Laparoscopic Patti fundoplication performed on 10/15/2016. HOSPITAL COURSE: Mr. Santos is a 61-year-old male, who initially presented to the ER with profound weakness. Upon further work up, the patient was found to have a hemoglobin of 5.6 and hematocrit of 21.8. The patient was admitted to the hospitalist service and GI was consulted. The patient received a blood transfusion and underwent an EGD which revealed a large hiatal hernia with Randy lesions present. As a result of this finding, general surgery was consulted and it was recommended that the patient undergo surgical intervention. On 10/15/2016, the patient underwent a Patti fundoplication procedure. The patient did well postoperatively. The patient did develop a leukocytosis, as well as profuse diarrhea. Stool for C. difficile was sent which came back positive. The patient was then started on oral vancomycin. Over the next several days, the patient's diarrhea resolved. The patient has known cerebral palsy, but was able to participate with physical therapy. The patient continued to improve clinically and ultimately cleared for discharge home on 10/25/2016. DISCHARGE MEDICATIONS: 1. Lactobacillus 1 tab oral twice a day. 2. Vancomycin 250 mg p.o. every 6 hours times ten more days. DISCHARGE DIET: GI soft diet. DISCHARGE FOLLOW UP: The patient will need to follow up with Dr. Esquivel on 11/01/2016. The patient will need to follow up with Barbra Wright on 10/22/2016. cc: MD Barbra Nicolas CRNP
== END 2016-10-25 13:11 | disposition home health service (06) ==
LOC: ED 11:08 → EDIPHOLD 12:51 → SUATTDRO 12:51 → 3N 18:56
PROVIDERS: ATTEND Internal Medicine